=== PATIENT | female | born 1950 | race Caucasian/White ===

== ENCOUNTER 2017-06-01 11:50 | Observation (INO) | payer OTHER ==
[2017-06-01] VITALS (10 sets, daily range): BP systolic 120–167; BP diastolic 61–76; PULSE 63–71; RESP 16–19; TEMP 98–98.5; O2SAT 94–100
[~2017-06-01] VITALS: Ht 146.1 cm; Wt 54.5 kg
[2017-06-01] MEDS ORDERED: GLAUCOMA EYE DROPS (12:35)
[2017-06-01] MEDS ORDERED: PROZ20CA11 PO (12:35)
[2017-06-01] MEDS ORDERED: ATOR40TA16 PO (12:35)
--- NOTE | 2017-06-01 13:12 | PD ---
HPI Chief Complaint: Chest Pain Time Seen by Provider: 12:58 Travel History International Travel<30 days: No Contact w/Intl Traveler<30days: No Traveled to known affect area: No History of Present Illness HPI 67-year-old female with a history of hyperlipidemia and glaucoma presents emergency department with a 2 hour history of intermittent heart palpitations with associated shortness of breath, nausea, and lower chest wall pain that radiates to the back. Patient describes the pain as a dull ache and is mild to moderate. She is also had lightheadedness and "hot and cold flashes". No palliative or provocative factors. Says that she was at [employer] when she developed this problem. Patient does not have a history of this. Patient does smoke anywhere from 1-2 packs daily. Patient denies family history of ACS. She denies history of hypertension. Patient takes aspirin normally daily but did not take any today. 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 PFSH Past Medical History Cancer: Yes (PAROTID GLAND) High Cholesterol: Yes Glaucoma: Yes Tetanus Vaccination: Unknown Influenza Vaccination: No Past Surgical History Eye Surgery: Yes Oral Surgery: Yes (PAROTID GLAND SX TUMOR REMOVAL) Social History Alcohol Use: No Tobacco Use: Yes Substance Use: No Allergies-Medications (Allergen,Severity, Reaction): Coded Allergies: No Known Allergies (Unverified , 06/01/17) Reported Meds & Prescriptions Reported Meds & Active Scripts Active Reported [Glaucoma Eye Drops] Prozac (Fluoxetine HCl) 20 Mg Cap 20 Mg PO DAILY Atorvastatin (Atorvastatin Calcium) 40 Mg Tab 40 Mg PO HS Review of Systems Except as stated in HPI: all other systems reviewed are Neg Physical Exam Narrative GENERAL: Well-developed, well-nourished no apparent distress, resting comfortably in bed SKIN: Focused skin assessment warm/dry. HEAD: Atraumatic. Normocephalic. EYES: Pupils equal and round. No scleral icterus. No injection or drainage. ENT: No nasal bleeding or discharge. Mucous membranes pink and moist. NECK: Trachea midline. No JVD. right anterolateral neck mass ~1cm round immobile , no TTP CARDIOVASCULAR: Regular rate and rhythm. No murmur appreciated. RESPIRATORY: No accessory muscle use. Clear to auscultation. Breath sounds equal bilaterally. GASTROINTESTINAL: Abdomen soft, non-tender, nondistended. MUSCULOSKELETAL: No obvious deformities. No clubbing. No cyanosis. Homans sign negative, no lower extremity edema. NEUROLOGICAL: Awake and alert. right sided facial palsy. Motor grossly within normal limits. Normal speech. PSYCHIATRIC: Appropriate mood and affect; insight and judgment normal. Data Data Last Documented VS Vital Signs Date Time Temp Pulse Resp B/P (MAP) Pulse Ox O2 Delivery O2 Flow Rate FiO2 06/01/17 14:23 65 17 150/70 (96) 98 Room Air 06/01/17 12:25 98.0 Orders Orders Electrocardiogram (06/01/17 13:06) Ckmb (Isoenzyme) Profile (06/01/17 13:06) Complete Blood Count With Diff (06/01/17 13:06) Comprehensive Metabolic Panel (06/01/17 13:06) Magnesium (Mg) (06/01/17 13:06) Prothrombin Time / Inr (Pt) (06/01/17 13:06) Act Partial Throm Time (Ptt) (06/01/17 13:06) Troponin I (06/01/17 13:06) Ecg Monitoring (06/01/17 13:06) Bilateral Bp Monitoring (06/01/17 13:06) Iv Access Insert/Monitor (06/01/17 13:06) Oximetry (06/01/17 13:06) Oxygen Administration (06/01/17 13:06) Aspirin Chew (Aspirin Chew) (06/01/17 13:15) Sodium Chloride 0.9% Flush (Ns Flush) (06/01/17 13:15) Chest, Pa & Lat (06/01/17 13:06) Urinalysis - C+S If Indicated (06/01/17 13:06) Thyroid Stimulating Hormone (06/01/17 13:06) Activity Bed Rest With Brp (06/01/17 14:57) Vital Signs (Adult) Q4H (06/01/17 14:57) Cardiac Rhythm .As Directed (06/01/17 14:57) Notify Dr: Other .PRN (06/01/17 14:57) Notify . Parameters (06/01/17 14:57) Resp Oxygen Nasal Cannula (06/01/17 ) Diet Heart Healthy (06/01/17 Dinner) Ckmb (Isoenzyme) Profile (06/01/17 16:28) Ckmb (Isoenzyme) Profile (06/01/17 19:28) Troponin I (06/01/17 16:28) Troponin I (06/01/17 19:28) Electrocardiogram (06/01/17 16:38) Electrocardiogram (06/01/17 19:38) ^ Obtain (06/01/17 14:57) Acetaminophen (Tylenol) (06/01/17 15:00) Ondansetron Inj (Zofran Inj) (06/01/17 15:00) [employer] Worker / Telemetry JOHN.Q8H (06/01/17 14:57) Admit Order (Ed Use Only) (06/01/17 14:57) Labs Laboratory Tests Test 06/01/17 13:28 06/01/17 14:37 White Blood Count 8.4 TH/MM3 Red Blood Count 4.33 MIL/MM3 Hemoglobin 13.9 GM/DL Hematocrit 40.0 % Mean Corpuscular Volume 92.4 FL Mean Corpuscular Hemoglobin 32.1 PG Mean Corpuscular Hemoglobin Concent 34.7 % Red Cell Distribution Width 13.2 % Platelet Count 218 TH/MM3 Mean Platelet Volume 9.3 FL Neutrophils (%) (Auto) 55.6 % Lymphocytes (%) (Auto) 31.7 % Monocytes (%) (Auto) 6.8 % Eosinophils (%) (Auto) 5.1 % Basophils (%) (Auto) 0.8 % Neutrophils # (Auto) 4.7 TH/MM3 Lymphocytes # (Auto) 2.7 TH/MM3 Monocytes # (Auto) 0.6 TH/MM3 Eosinophils # (Auto) 0.4 TH/MM3 Basophils # (Auto) 0.1 TH/MM3 CBC Comment DIFF FINAL Differential Comment Prothrombin Time 10.6 SEC Prothromb Time International Ratio 1.0 RATIO Activated Partial Thromboplast Time 26.1 SEC Blood Urea Nitrogen 17 MG/DL Creatinine 0.87 MG/DL Random Glucose 84 MG/DL Total Protein 7.2 GM/DL Albumin 3.9 GM/DL Calcium Level 8.8 MG/DL Magnesium Level 2.1 MG/DL Alkaline Phosphatase 76 U/L Aspartate Amino Transf (AST/SGOT) 17 U/L Alanine Aminotransferase (ALT/SGPT) 27 U/L Total Bilirubin 0.4 MG/DL Sodium Level 139 MEQ/L Potassium Level 3.9 MEQ/L Chloride Level 105 MEQ/L Carbon Dioxide Level 26.8 MEQ/L Anion Gap 7 MEQ/L Estimat Glomerular Filtration Rate 65 ML/MIN Total Creatine Kinase 43 U/L Troponin I LESS THAN 0.02 NG/ML Thyroid Stimulating Hormone 3rd Gen 0.773 uIU/ML Urine Color LIGHT-YELLOW Urine Turbidity CLEAR Urine pH 6.0 Urine Specific [place] 1.009 Urine Protein NEG mg/dL Urine Glucose (UA) NEG mg/dL Urine Ketones NEG mg/dL Urine Occult Blood NEG Urine Nitrite NEG Urine Bilirubin NEG Urine Urobilinogen LESS THAN 2.0 MG/DL Urine Leukocyte Esterase TRACE Urine RBC 1 /hpf Urine WBC 1 /hpf Urine Squamous Epithelial Cells <1 /hpf Urine Hyaline Casts 17 /lpf Microscopic Urinalysis Comment CULT NOT INDICATED MDM Medical Decision Making Medical Screen Exam Complete: Yes Emergency Medical Condition: Yes Differential Diagnosis ACS, anxiety, panic attack, pancreatitis, nephrolithiasis Narrative Course 67-year-old female with a history of hyperlipidemia and glaucoma presents emergency department with a 2 hour history of intermittent heart palpitations with associated shortness of breath, nausea, and lower chest wall pain that radiates to the back. Patient describes the pain as a dull ache and is mild to moderate. She is also had lightheadedness and "hot and cold flashes". No palliative or provocative factors. Says that she was at [employer] working when she developed this problem. Patient does not have a history of this. Patient does smoke anywhere from 1-2 packs daily. Patient denies family history of ACS. She denies history of hypertension. Patient takes aspirin normally daily but did not take any today. 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 Vital signs stable. Physical exam findings significant for mild left lower chest wall TTP. No CVA tenderness. EKG shows sinus rhythm without STEMI changes. Cardiac enzymes negative. Labs otherwise unremarkable. HEART Score 4 for history, age, risk factors. Says she does feel better now after resting in the ED today. Patient be admitted to the chest pain center as she does have risk factors. Diagnosis Primary Impression: Atypical chest pain Admitting Information Admitting Physician Requests: Observation Condition: Stable Justice,Enedelia PA Jun 01, 2017 13:12
[2017-06-01] MEDS ORDERED: ASPIRIN 81 MG CHEW TAB PO ONE (13:15)
[2017-06-01] MEDS ORDERED: SODIUM CHLORIDE 0.9% FLUSH 10 ML FLUSH IVF PRN (13:15)
[2017-06-01 13:51] LABS: AUTOMATED NEUTROPHIL # 4.7 TH/MM3 (1.8-7.7); BASOPHIL # 0.1 TH/MM3 (0-0.2); BASOPHIL % 0.8 % (0.0-2.0); EOSINOPHIL # 0.4 TH/MM3 (0-0.4); EOSINOPHIL % 5.1 % (0.0-4.0); HEMOGLOBIN 13.9 GM/DL (11.6-15.3); LYMPH % 31.7 % (9.0-44.0); LYMPHOCYTE # 2.7 TH/MM3 (1.0-4.8); MEAN CELL VOLUME 92.4 FL (80.0-100.0); MEAN CORPUSCULAR HEMOGLOBIN 32.1 PG (27.0-34.0); MEAN CORPUSCULAR HGB CONC 34.7 % (32.0-36.0); MEAN PLATELET VOLUME 9.3 FL (7.0-11.0); MONO % 6.8 % (0.0-8.0); MONOCYTE # 0.6 TH/MM3 (0-0.9); NEUT % 55.6 % (16.0-70.0); PLATELET COUNT 218 TH/MM3 (150-450); RED BLOOD COUNT 4.33 MIL/MM3 (4.00-5.30); RED CELL DISTRIBUTION WIDTH 13.2 % (11.6-17.2); WHITE BLOOD COUNT 8.4 TH/MM3 (4.0-11.0)
[2017-06-01 13:56] LABS: PROTHROMBIN TIME - PATIENT 10.6 SEC (9.8-11.6)
[2017-06-01 14:00] LABS: ALBUMIN 3.9 GM/DL (3.4-5.0); ALT (GPT) 27 U/L (10-53); AST (GOT) 17 U/L (15-37); BICARBONATE 26.8 MEQ/L (21.0-32.0); BLOOD UREA NITROGEN 17 MG/DL (7-18); CALCIUM 8.8 MG/DL (8.5-10.1); CHLORIDE 105 MEQ/L (98-107); CREATININE 0.87 MG/DL (0.50-1.00); GLOMERULAR FILTRATION RATE 65 ML/MIN (>89); GLUCOSE,RANDOM 84 MG/DL (74-106); MAGNESIUM 2.1 MG/DL (1.5-2.5); SODIUM (NA) 139 MEQ/L (136-145)
[2017-06-01 14:10] LABS: ALKALINE PHOSPHATASE 76 U/L (45-117); TOTAL BILIRUBIN ADULT 0.4 MG/DL (0.2-1.0); TOTAL PROTEIN 7.2 GM/DL (6.4-8.2); TROPONIN I LESS THAN 0.02 NG/ML (0.02-0.05)
--- NOTE | 2017-06-01 14:12 | RADRPT ---
EXAM DATE/TIME: 06/01/2017 13:47 [facility] COMPARISON: No previous studies available for comparison. INDICATIONS : Chest pain today. MEDICAL HISTORY : Parotid gland tumor. SURGICAL HISTORY : Parotid gland tumor removal. ENCOUNTER: Initial ACUITY: 1 day PAIN SCORE: 5/10 LOCATION: Bilateral chest FINDINGS: PA and lateral views of the chest demonstrate a normal-sized cardiac silhouette. There is no effusion , consolidation, or pneumothorax. The bones and soft tissues demonstrate no acute abnormality. There are degenerative changes of the thoracic spine. CONCLUSION: No acute cardiopulmonary abnormality is identified. Onel Gould MD on June 01, 2017 at 14:11 Board Certified Radiologist. This report was verified electronically.
[2017-06-01] MEDS ORDERED: ACETAMINOPHEN 500 MG CPLT PO PRN (15:00)
[2017-06-01] MEDS ORDERED: ONDANSETRON HCL 4 MG/2 ML VIAL IV PUSH PRN (15:00)
[2017-06-01 15:03] LABS: BILIRUBIN, URINE NEG (NEG); BLOOD, URINE NEG (NEG); GLUCOSE,URINE NEG (NEG); HYALINE CAST, URINE 17 /lpf (RARE); KETONE, URINE NEG (NEG); NITRITE,URINE NEG (NEG); SQUAMOUS EPITHELIAL CELL URINE <1 /hpf (0-5); URINE COLOR LIGHT-YELLOW (YELLW/STRAW); URINE LEUKOCYTE ESTERASE TRACE (NEG)
[2017-06-01] MEDS ORDERED: ALPRAZolam 0.25 MG TAB PO PRN (15:30)
[2017-06-01] MEDS ORDERED: ACETAMINOPHEN/HYDROcodone 325 MG/7.5 MG TAB PO PRN (15:30)
--- NOTE | 2017-06-01 15:42 | HHI.HP ---
HPI Primary Care Physician No Primary Care Physician Chief Complaint Chest pain History of Present Illness This is a 67-year-old female with history of hyperlipidemia and tobacco abuse that presents with complaint of palpitations and chest pain. Patient states that for the past month she has had a sensation of her heart beating rapidly. States that has always happened at night. States that she sleeps on her stomach , when she would try to roll over she would have that sensation which would last 1-2 minutes. She did not have associated chest discomfort, shortness of breath, nausea, or diaphoresis with the symptoms. Then today, while patient was at work, she developed sensation of heart beating rapidly as well as a tightness that was across her chest. The sensation of her heart beating rapidly as well as the chest discomfort lasted about 1 or 2 minutes however she felt nauseous for about 30 minutes. She was diaphoretic and for short time was also short of breath. Denies history of cardiac illness. States her main health issue was parotid cancer which was excised in 2000 resulting in cranial nerve VII injury. States since then she has had a right facial droop and right eyelid does not close all the way. Currently denies chest discomfort. Review of Systems General: Patient denies fevers, chills, and recent travel. HEENT: Patient denies headache, sore throat, difficulty swallowing. Cardiovascular: Has the chest discomfort as mentioned above. Has had the sensation of her heart beating rapidly, has not checked her heart rate went occurs. Denies sensation of heart beating irregularly. No syncope. Denies diaphoresis. Respiratory: She was briefly short of breath this morning. Denies inspirational chest discomfort. Denies coughing wheezing or hemoptysis. GI: Patient denies nausea, vomiting, diarrhea, abdominal pain, bloody stools. Musculoskeletal: Patient denies joint pain or edema. Denies calf pain or edema. Neurovascular: Chronic right sided facial droop secondary to facial nerve damage. Patient denies numbness, tingling, weakness in extremities. Denies headache. Endocrine: Denies polyuria and polydipsia. Hematologic: Denies easy bruising. Skin: Denies rash or itching. Past Family Social History Allergies: Coded Allergies: No Known Allergies (Unverified , 06/01/17) Past Medical History Hyperlipidemia, tobacco abuse, parotid gland cancer with excision of the tumor. Denies hypertension, diabetes, and known CAD. Past Surgical History Parotid gland cancer removed. Reported Medications Reported Meds & Active Scripts Active Reported [Glaucoma Eye Drops] Prozac (Fluoxetine HCl) 20 Mg Cap 20 Mg PO DAILY Atorvastatin (Atorvastatin Calcium) 40 Mg Tab 40 Mg PO HS Active Ordered Medications Current Medications Medications (Trade) Dose Ordered Sig/Michelle Route Start Time Stop Time Status Last Admin (NS Flush) 2 ml UNSCH PRN IVF 06/01/17 13:15 (Tylenol) 500 mg Q4H PRN PO 06/01/17 15:00 (Zofran Inj) 4 mg Q6H PRN IV PUSH 06/01/17 15:00 (Lester 7.5-325 Mg) 1 tab Q4H PRN PO 06/01/17 15:30 UNV (Aspirin) 325 mg DAILY PO 06/02/17 09:00 UNV (Xanax) 0.25 mg Q8H PRN PO 06/01/17 15:30 UNV (Lipitor) 40 mg HS PO 06/01/17 21:00 UNV (PROzac) 20 mg DAILY PO 06/02/17 09:00 UNV Family History Denies family history of CAD. Social History Patient smokes 1-1/2-2 packs of cigarettes daily for 45 years. Denies alcohol or illicit drugs. She has been for 26 years. She works at [employer]. Physical Exam Vital Signs Vital Signs Date Time Temp Pulse Resp B/P (MAP) Pulse Ox O2 Delivery O2 Flow Rate FiO2 06/01/17 15:07 63 18 156/74 (101) 99 Room Air 06/01/17 14:23 65 17 150/70 (96) 98 Room Air 06/01/17 14:23 98 Room Air 06/01/17 12:45 167/76 (106) 150/70 (96) 06/01/17 12:43 63 16 100 Room Air 06/01/17 12:43 63 16 150/70 (96) 100 Room Air 06/01/17 12:25 98.0 71 167/76 (106) 99 Physical Exam GENERAL: This is a well-nourished, well-developed patient, in no apparent distress. Patient speaks in clear complete sentences. Patient is pleasant. Her is at the bedside. HEENT: Head is atraumatic and normocephalic. Neck is supple without lymphadenopathy and trachea is midline. No JVD or carotid bruits. CARDIOVASCULAR: Regular rate and rhythm without murmurs, gallops, or rubs. RESPIRATORY: Clear to auscultation. Breath sounds equal bilaterally. No wheezes , rales, or rhonchi. Chest wall is nontender. No use of accessory muscles. GASTROINTESTINAL: Abdomen is nontender, nondistended. Abdomen soft. No obvious pulsatile mass or bruit. No CVA tenderness. Strong femoral pulses bilaterally. Normal bowel sounds in all quadrants. MUSCULOSKELETAL: Patient is moving upper and lower extremities freely. No calf tenderness or edema, no Homans sign. Strong pulses in upper and lower extremities. NEUROLOGICAL: Patient is alert and oriented. Right facial asymmetry with some chronic right-sided facial droop. Moving upper and lower extremities freely. No focal deficits and speech is clear. SKIN: No rash and turgor is normal. Laboratory Laboratory Tests Test 06/01/17 13:28 06/01/17 14:37 White Blood Count 8.4 Red Blood Count 4.33 Hemoglobin 13.9 Hematocrit 40.0 Mean Corpuscular Volume 92.4 Mean Corpuscular Hemoglobin 32.1 Mean Corpuscular Hemoglobin Concent 34.7 Red Cell Distribution Width 13.2 Platelet Count 218 Mean Platelet Volume 9.3 Neutrophils (%) (Auto) 55.6 Lymphocytes (%) (Auto) 31.7 Monocytes (%) (Auto) 6.8 Eosinophils (%) (Auto) 5.1 Basophils (%) (Auto) 0.8 Neutrophils # (Auto) 4.7 Lymphocytes # (Auto) 2.7 Monocytes # (Auto) 0.6 Eosinophils # (Auto) 0.4 Basophils # (Auto) 0.1 CBC Comment DIFF FINAL Differential Comment Prothrombin Time 10.6 Prothromb Time International Ratio 1.0 Activated Partial Thromboplast Time 26.1 Blood Urea Nitrogen 17 Creatinine 0.87 Random Glucose 84 Total Protein 7.2 Albumin 3.9 Calcium Level 8.8 Magnesium Level 2.1 Alkaline Phosphatase 76 Aspartate Amino Transf (AST/SGOT) 17 Alanine Aminotransferase (ALT/SGPT) 27 Total Bilirubin 0.4 Sodium Level 139 Potassium Level 3.9 Chloride Level 105 Carbon Dioxide Level 26.8 Anion Gap 7 Estimat Glomerular Filtration Rate 65 Total Creatine Kinase 43 Troponin I LESS THAN 0.02 Thyroid Stimulating Hormone 3rd Gen 0.773 Urine Color LIGHT-YELLOW Urine Turbidity CLEAR Urine pH 6.0 Urine Specific [place] 1.009 Urine Protein NEG Urine Glucose (UA) NEG Urine Ketones NEG Urine Occult Blood NEG Urine Nitrite NEG Urine Bilirubin NEG Urine Urobilinogen LESS THAN 2.0 Urine Leukocyte Esterase TRACE Urine RBC 1 Urine WBC 1 Urine Squamous Epithelial Cells <1 Urine Hyaline Casts 17 Microscopic Urinalysis Comment CULT NOT INDICATED Result Diagram: 06/01/17 1328 06/01/17 1328 Imaging Last 48 hours Impressions Chest X-Ray 06/01/17 1306 Signed Impressions: Service Date/Time: Thursday, June 01, 2017 13:47 - CONCLUSION: No acute cardiopulmonary abnormality is identified. Onel Gould MD Course EKGs: Initial EKG is sinus rhythm without significant ST segment depressions or elevations. Caprini VTE Risk Assessment Caprini VTE Risk Assessment: Mod/High Risk (score >= 2) Caprini Risk Assessment Model Point Value = 1 Point Value = 2 Point Value = 3 Point Value = 5 Age 41-60 Minor surgery BMI > 25 kg/m2 Swollen legs Varicose veins or History of unexplained or recurrent spontaneous Oral contraceptives or hormone replacement Sepsis (< 1 month) Serious lung disease, including pneumonia (< 1 month) Abnormal pulmonary function Acute myocardial infarction Congestive heart failure (< 1 month) History of inflammatory bowel disease Medical patient at bed rest Age 61-74 Arthroscopic surgery Major open surgery (> 45 min) Laparoscopic surgery (> 45 min) Malignancy Confined to bed (> 72 hours) Immobilizing plaster cast Central venous access Age >= 75 History of VTE Family history of VTE Factor V Leiden Prothrombin [id number] Lupus anticoagulant Anticardiolipin antibodies Elevated serum homocysteine Heparin-induced thrombocytopenia Other congenital or acquired thrombophilia Stroke (< 1 month) Elective arthroplasty Hip, pelvis, or leg fracture Acute spinal cord injury (< 1 month) Prophylaxis Regimen Total Risk Factor Score Risk Level Prophylaxis Regimen 0-1 Low Early ambulation 2 Moderate Order ONE of the following: *Sequential Compression Device (SCD) *Heparin 5000 units SQ BID 3-4 Higher Order ONE of the following medications: *Heparin 5000 units SQ TID *Enoxaparin/Lovenox 40 mg SQ daily (WT < 150 kg, CrCl > 30 mL/min) *Enoxaparin/Lovenox 30 mg SQ daily (WT < 150 kg, CrCl > 10-29 mL/min) *Enoxaparin/Lovenox 30 mg SQ BID (WT < 150 kg, CrCl > 30 mL/min) AND/OR *Sequential Compression Device (SCD) 5 or more Highest Order ONE of the following medications: *Heparin 5000 units SQ TID (Preferred with Epidurals) *Enoxaparin/Lovenox 40 mg SQ daily (WT < 150 kg, CrCl > 30 mL/min) *Enoxaparin/Lovenox 30 mg SQ daily (WT < 150 kg, CrCl > 10-29 mL/min) *Enoxaparin/Lovenox 30 mg SQ BID (WT < 150 kg, CrCl > 30 mL/min) AND *Sequential Compression Device (SCD) Assessment and Plan Assessment and Plan * Chest pain: Patient will continue to have serial cardiac enzymes and EKGs for ruling out purposes. She will be seen by Dr. De La Torre of cardiology in the chest pain center. She will have a stress test in the morning if she rules out and would be discharged home if her stress test is nonischemic with instructions to follow-up with PCP. Return to ED for interval issues. * Hyperlipidemia: Continue current medication. * Tobacco abuse: Patient has been counseled on the importance of smoking cessation. Patient is stable at this time. She is agreeable to this plan. Leonardo Coppola Jun 01, 2017 15:42
[2017-06-01] MEDS ORDERED: cloNIDine HCL 0.1 MG TAB PO PRN (15:45)
[2017-06-01] MEDS ORDERED: RESP: ALBUTEROL 2.5 MG/IPRATROPIUM 0.5 MG NEB (PRN) INH (15:45)
[2017-06-01 17:25] LABS: TROPONIN I LESS THAN 0.02 NG/ML (0.02-0.05)
[2017-06-01 20:30] LABS: TROPONIN I LESS THAN 0.02 NG/ML (0.02-0.05)
[2017-06-01] MEDS ORDERED: ATORVASTATIN 40 MG TAB PO SCH (21:00)
[2017-06-02 03:49] VITALS: BP 144/67; PULSE 67; RESP 16; TEMP 98.7; O2SAT 98
[2017-06-02 08:00] VITALS: PULSE 85
[2017-06-02 08:19] VITALS: BP 130/60; PULSE 70; RESP 25; TEMP 97.9; O2SAT 97
[2017-06-02] MEDS ORDERED: FLUoxetine HCL 20 MG CAP PO SCH (09:00)
[2017-06-02] MEDS ORDERED: ASPIRIN 325 MG TAB PO SCH (09:00)
[2017-06-02] MEDS ORDERED: REGADENOSON INJ 0.4 MG/5 ML SYR ONE (09:55)
[2017-06-02] MEDS ORDERED: AMINOPHYLLINE INJ 250 MG/10 ML VIAL IV ONE (10:40)
[2017-06-02 11:48] VITALS: BP 125/66; PULSE 77; RESP 12; TEMP 97.3; O2SAT 96
--- NOTE | 2017-06-02 12:01 | RADRPT ---
EXAM DATE/TIME: 06/02/2017 10:04 [facility] COMPARISON: No previous studies available for comparison. INDICATIONS : Chest pain x 1 month. Angina. DOSE: 25.2 mCi Tc99m Myoview at stress. 8.5 mCi Tc99m Myoview at rest. 0.4 mg Lexiscan STRESS SYMPTOMS: Dyspnea. MEDICATIONS: 1.) 100 mg Aminophylline IV EJECTION FRACTION: > 70% MEDICAL HISTORY : Smoker. SURGICAL HISTORY : Partoid cancer ENCOUNTER: Initial ACUITY: 1 day PAIN SCALE: 0/10 LOCATION: Bilateral chest TECHNIQUE: The patient underwent pharmacologic stress with infusion of prescribed dose. Continuous ECG tracing was monitored during stress. Gated SPECT imaging was performed after stress and conventional SPECT i maging was performed at rest. The examination was performed on a SPECT/CT scanner, both attenuation and non-corrected datasets were reviewed. FINDINGS: DISTRIBUTION: The maximum perfused segment at stress is in the anterior wall. PERFUSION STUDY: There is a mild severity inferolateral perfusion abnormality without evidence of redistribution GATED STUDY: There is intact wall motion and thickening without hypokinetic or dyskinetic segments. CONCLUSION: Mild fixed inferolateral perfusion abnormality. No evidence of ischemia. RISK CATEGORY: Low (<1% Annual Mortality Rate) Onel Garcia MD on June 02, 2017 at 11:59 Board Certified Radiologist. This report was verified electronically.
--- NOTE | 2017-06-02 12:28 | HHI.DCPOC ---
Discharge Care Plan Diagnosis: (1) Atypical chest pain (2) Hyperlipidemia (3) Tobacco abuse Goals to Promote Your Health * To prevent worsening of your condition and complications * To maintain your health at the optimal level Directions to Meet Your Goals Take your medications as prescribed Follow your dietary instruction Follow activity as directed Keep your appointments as scheduled Take your immunizations and boosters as scheduled If your symptoms worsen call your PCP, if no PCP go to Urgent Care Center or Emergency Room Smoking is Dangerous to Your Health. Avoid second hand smoke Call the 24-hour hour crisis hotline for domestic abuse at Leonardo Coppola Jun 02, 2017 12:28
--- NOTE | 2017-06-02 16:05 | EKG ---
Date Performed: 06/01/2017 Time Performed: 19:32:14 PTAGE: 67 years EKG: Sinus rhythm POSSIBLE LEFT ATRIAL ENLARGEMENT BORDERLINE ECG PREVIOUS TRACING : 06/01/2017 16.18 Since previous tracing, no significant change noted DOCTOR: Radu Magallon Interpretating Date/Time 06/02/2017 16:03:58
--- NOTE | 2017-06-02 16:05 | EKG ---
Date Performed: 06/01/2017 Time Performed: 16:18:13 PTAGE: 67 years EKG: Sinus rhythm POSSIBLE LEFT ATRIAL ENLARGEMENT PREVIOUS TRACING : 06/01/2017 12.40 Since previous tracing, no significant change noted DOCTOR: Radu Magallon Interpretating Date/Time 06/02/2017 16:04:14
--- NOTE | 2017-06-02 16:06 | EKG ---
Date Performed: 06/01/2017 Time Performed: 12:40:46 PTAGE: 67 years EKG: Sinus rhythm POSSIBLE LEFT ATRIAL ENLARGEMENT BORDERLINE ECG NO PREVIOUS TRACING DOCTOR: Radu Magallon Interpretating Date/Time 06/02/2017 16:04:38
--- NOTE | 2017-06-02 16:09 | TR ---
Date Performed: 06/02/2017 Time Performed: 10:26:52 DOCTOR: Radu Magallon DRUG LIST: CLINICAL HISTORY: ANGINA REASON FOR TEST: Angina REASON FOR ENDING: OBSERVATION: CONCLUSION: Lexiscan stress test was performed under standard four minute protocol. Radionuclid e was injected one minute prior to ending the test. No electrocardiographic abormalities were present to suggest ischemia. Nuclear imaging and interpretation are pending. COMMENTS:
== END 2017-06-02 17:16 | disposition home or self-care (01) ==
LOC: NEPC 11:50 → NEDA 15:05 → NEPFCDU 16:30
PROVIDERS: ADMIT Internal Medicine Interventional Cardiology; ATTEND Internal Medicine Interventional Cardiology
DX: R07.89 Other chest pain (principal); E78.5 Hyperlipidemia, unspecified; R00.2 Palpitations; R06.02 Shortness of breath; R61 Generalized hyperhidrosis; R11.0 Nausea; I20.9 Angina pectoris, unspecified; E78.00 Pure hypercholesterolemia, unspecified; R42 Dizziness and giddiness; G51.0 Bell's palsy; H40.9 Unspecified glaucoma; F17.200 Nicotine dependence, unspecified, uncomplicated; Z79.82 Long term (current) use of aspirin; Z85.89 Personal history of malignant neoplasm of other organs and systems
CPT/HCPCS: 71046; 78452; 80053; 81001; 82550; 83735; 84443; 84484; 85025; 85610; 85730; 93005; 93017; 99285; A9502; G0378; J0280; J2785